=== PATIENT | female | born 1950 | race Caucasian/White ===

== ENCOUNTER 2019-03-02 11:43 | Emergency (ER) | payer MEDICARE, OTHER ==
[~2019-03-02] VITALS: Ht 160 cm; Wt 92.1 kg
--- NOTE | 2019-03-02 12:01 | NUR ---
PT TO ROOM AND IN GOWN. PT SET UP ON ALL MONITORS.
--- NOTE | 2019-03-02 12:01 | NUR ---
68 Y/O FEMALE PRESENTS TO ED WITH C/O CP. PER PT "SINCE LAST NIGHT I GOT SOME CHEST PAIN. IT FEELS LIKE IT'S A SQUEEZING A MUSCLE. IT'S OFF AND ON. I DIDN'T TAKE ANY MEDS FOR IT. I WAS SWEATING THIS MORNING, BUT IT'S GONE AWAY. " NO C/O N/V/D, TRAUMA, SYNCOPE.
[2019-03-02] MEDS ORDERED: SODIUM CHLORIDE FLUSH 10ML SYR IVF ONE (12:30)
[2019-03-02 12:42] LABS: BASOPHILS # (AUTO) 0.03 x10^3/uL (0-0.1); BASOPHILS % (AUTO) 0 % (0-1); EOSINOPHILS # (AUTO) 0.28 x10^3/uL (0-0.4); EOSINOPHILS % (AUTO) 4 % (1-7); LYMPHOCYTES # (AUTO) 1.61 x10^3/uL (1-3.4); LYMPHOCYTES % (AUTO) 25 % (22-44); MD NO; MEAN CORPUSCULAR HGB CONC 33.8 g/dL (32.4-35.8); MEAN CORPUSCULAR VOLUME 88.6 fL (80-100); MEAN PLATELET VOLUME 8.3 fL (7.4-10.4); MONOCYTES # (AUTO) 0.83 x10^3/uL (0.2-0.8); MONOCYTES % (AUTO) 13 % (2-9); NEUTROPHILS # (AUTO) 3.82 x10^3/uL (1.8-6.8); NEUTROPHILS % (AUTO) 58 % (42-75); PLATELET COUNT 288 x10^3/uL (130-400); RED BLOOD COUNT 4.67 x10^6/uL (3.82-5.3); RED CELL DISTRIBUTION WIDTH 15.1 % (9.6-15.2)
[2019-03-02 12:52] LABS: INTERNATIONAL NORMALIZED RATIO 0.95 (0.93-1.1)
[2019-03-02 12:54] LABS: ALANINE AMINOTRANSFERASE 31 U/L (12-78); ALBUMIN 3.6 g/dL (3.4-5.0); ANION GAP 9 mmol/L (5-15); CALCIUM 8.6 mg/dL (8.5-10.1); CHLORIDE 108 mmol/L (98-107)
[2019-03-02 12:59] LABS: ALKALINE PHOSPHATASE 86 U/L (45-117); BILIRUBIN,TOTAL 0.4 mg/dL (0.2-1.0); CREATININE 0.73 mg/dL (0.55-1.02); TOTAL PROTEIN 7.4 g/dL (6.4-8.2); TROPONIN I < 0.015 ng/mL (0.000-0.045)
--- NOTE | 2019-03-02 13:34 | NUR ---
late entry for 1250: bedside report to shanta larson rn.
--- NOTE | 2019-03-02 13:35 | NUR ---
late entry for 1223: RECEIVED BEDSIDE REPORT FROM LINDA CRUZ RN.
[2019-03-02 13:37] VITALS: BP 113/71
== END 2019-03-02 14:02 | disposition home or self-care (01) ==
LOC: ED 13:40
DX: R07.89 Other chest pain (principal); M94.0 Chondrocostal junction syndrome [Tietze]; I25.2 Old myocardial infarction
CPT/HCPCS: 36415; 71045; 80053; 84484; 85025; 85610; 93005; 99284

== ENCOUNTER 2021-01-30 09:27 | Inpatient (IN) | payer OTHER ==
[~2021-01-30] VITALS: Ht 160 cm; Wt 93.8 kg
[2021-01-30] MEDS ORDERED: MORPHINE SULFATE 4 MG/ML, 1ML ONE (09:39)
[2021-01-30 09:58] LABS: BASOPHILS % (AUTO) 1 % (0-1); EOSINOPHILS % (AUTO) 2 % (1-7); LYMPHOCYTES % (AUTO) 21 % (22-44); MEAN CORPUSCULAR HEMOGLOBIN 29.8 pg (27.0-34.8); MEAN PLATELET VOLUME 8.3 fL (7.4-10.4); MONOCYTES % (AUTO) 10 % (2-9); NEUTROPHILS % (AUTO) 67 % (42-75); PLATELET COUNT 267 x10^3/uL (130-400); RED BLOOD COUNT 4.51 x10^6/uL (3.82-5.3)
[2021-01-30] MEDS ORDERED: MORPHINE SULFATE 4 MG/ML, 1ML IVPush PRN (10:00)
--- NOTE | 2021-01-30 10:01 | NUR ---
PT BIB EMS FOR CP, SOB, AND NAUSEA THAT STARTED AROUND 0400. PT HX OF GA WITH CARDIAC SURGERY IN 2008 WITH STENTS PLACED. PT STATES PAIN IS 10/10, CRUSHING AND RADIATES TO HER BACK. PT TOOK 1 [employer] EMS ARRIVAL. PIV BY EMS [employer]PER[employer] CONSULTANT RAC 20 GA. EMS GAVE PT 324 ASPIRIN, 4 MG ZOFRAN, 150 ML NS AND 10.4 MG NTG. PER EMS PT 12 LEAD PRIOR TO NTG WAS OK, BUT AFTER NTG SHOWED 1MM ST ELEVATON IN INFERIOR LEADS. PT ALSO HAD A SIGNIFICANT DECREASE IN BP TO 90/60 SO EMS INITIATED NS BOLUS OF 150 ML.
--- NOTE | 2021-01-30 10:05 | NUR ---
PT FRIEND BEDSIDE AT THIS TIME
[2021-01-30 10:10] LABS: INTERNATIONAL NORMALIZED RATIO 0.98 (0.93-1.1); PROTHROMBIN TIME 10.5 Seconds (9.6-11.5)
[2021-01-30 10:21] LABS: ALBUMIN 3.4 g/dL (3.4-5.0); ANION GAP 7 mmol/L (5-15); CHLORIDE 110 mmol/L (98-107)
[2021-01-30 10:37] LABS: TROPONIN I < 0.015 ng/mL (0.000-0.045)
[2021-01-30] MEDS ORDERED: HEPARIN 25,000 UNITS/250ML PMX 250 ML IV PRN (12:00)
[2021-01-30] MEDS ORDERED: HEPARIN 5,000 UNITS/ML, 1ML IV ONE (12:00)
[2021-01-30] MEDS ORDERED: HEPARIN 5,000 UNITS/ML, 1ML IV PRN (12:00)
--- NOTE | 2021-01-30 12:08 | NUR ---
CONFIRMED HEPARIN DOSE WITH PHARMACY
[2021-01-30] MEDS ORDERED: HEPARIN 25,000 UNITS/250ML PMX 250 ML ONE (12:10)
[2021-01-30] MEDS ORDERED: HEPARIN 5,000 UNITS/ML, 1ML ONE (12:10)
[2021-01-30] MEDS ORDERED: LISINOPRIL 5 MG TABLET PO ONE (12:30)
[2021-01-30 12:46] LABS: TROPONIN I < 0.015 ng/mL (0.000-0.045)
[2021-01-30] MEDS ORDERED: SODIUM CHLORIDE FLUSH 10ML SYR IVF PRN (13:30)
--- NOTE | 2021-01-30 13:32 | NUR ---
PT OFF THE FLOOR TO [facility]
[2021-01-30] MEDS ORDERED: FENTANYL PF 100 MCG/2ML ONE (13:36)
[2021-01-30] MEDS ORDERED: TICAGRELOR 90 MG TABLET ONE (13:36)
[2021-01-30] MEDS ORDERED: MIDAZOLAM 1 MG/ML, 5ML ONE (13:36)
[2021-01-30] MEDS ORDERED: VERAPAMIL 2.5 MG/ML, 2ML ONE (13:36)
[2021-01-30] MEDS ORDERED: BIVALIRUDIN 250 MG ONE (13:37)
[2021-01-30] MEDS ORDERED: HEPARIN 1,000 UNITS/ML, 10ML ONE (13:37)
[2021-01-30] MEDS ORDERED: LIDOCAINE-MPF 1%, 5ML ONE (13:37)
[2021-01-30] MEDS ORDERED: LIDOCAINE 1%, 20ML ONE (13:38)
[2021-01-30 14:46] VITALS: BP 132/68
[2021-01-30 20:41] VITALS: BP 92/60
[2021-01-30] MEDS ORDERED: METOPROLOL SUCCINATE 25 MG TAB.ER.24H PO SCH (21:00)
[2021-01-30] MEDS: ATORVASTATIN 80 MG TABLET PO SCH (21:04)
[2021-01-31 00:17] VITALS: BP 88/54
[2021-01-31] MEDS: ASPIRIN 81 MG TABLET EC PO SCH (05:47)
[2021-01-31 06:56] VITALS: BP 96/60
[2021-01-31] MEDS ORDERED: ONDANSETRON 2MG/ML, 2ML IVPush PRN (08:30)
[2021-01-31] MEDS: CLOPIDOGREL 75 MG TABLET PO SCH (11:14)
[2021-01-31 12:22] VITALS: BP 102/64
[2021-01-31 20:00] VITALS: BP 109/69
[2021-01-31] MEDS: ATORVASTATIN 80 MG TABLET PO SCH (20:58)
[2021-02-01 01:11] VITALS: BP 112/68
[2021-02-01] MEDS: ASPIRIN 81 MG TABLET EC PO SCH (05:37)
[2021-02-01 06:29] VITALS: BP 115/57
[2021-02-01] MEDS: CLOPIDOGREL 75 MG TABLET PO SCH (09:00)
[2021-02-01] MEDS ORDERED: ATOR-2 PO (12:16)
[2021-02-01] MEDS ORDERED: ASPI81TA45 PO (12:16)
[2021-02-01] MEDS ORDERED: CLOP75TA PO (12:16)
[2021-02-01 12:23] VITALS: BP 118/66
== END 2021-02-01 14:02 | disposition home or self-care (01) | DRG 287 ==
LOC: ED 10:54 → 5SO 14:50 → INTOOBSV 14:50 → OBSVTOIN 01-31 13:24
PROVIDERS: ADMIT Internal Medicine Cardiovascular Disease; ATTEND Internal Medicine Cardiovascular Disease
PROC: 4A023N7 Measurement of Cardiac Sampling and Pressure, Left Heart, Percutaneous Approach (ICD-10-PCS; principal; 2021-01-30)
PROC: B2111ZZ Fluoroscopy of Multiple Coronary Arteries using Low Osmolar Contrast (ICD-10-PCS; 2021-01-30)
PROC: B2131ZZ Fluoroscopy of Multiple Coronary Artery Bypass Grafts using Low Osmolar Contrast (ICD-10-PCS; 2021-01-30)
PROC: B2151ZZ Fluoroscopy of Left Heart using Low Osmolar Contrast (ICD-10-PCS; 2021-01-30)
PROC: B2181ZZ Fluoroscopy of Left Internal Mammary Bypass Graft using Low Osmolar Contrast (ICD-10-PCS; 2021-01-30)
PROC: B51V1ZZ Fluoroscopy of Other Veins using Low Osmolar Contrast (ICD-10-PCS; 2021-01-30)
DX: I25.700 Atherosclerosis of coronary artery bypass graft(s), unspecified, with unstable angina pectoris (principal); I24.9 Acute ischemic heart disease, unspecified; I25.82 Chronic total occlusion of coronary artery; E66.01 Morbid (severe) obesity due to excess calories; E78.5 Hyperlipidemia, unspecified; I10 Essential (primary) hypertension; Z79.82 Long term (current) use of aspirin; Z83.3 Family history of diabetes mellitus; Z87.891 Personal history of nicotine dependence; Z91.19 Patient's noncompliance with other medical treatment and regimen; I25.2 Old myocardial infarction; Z79.899 Other long term (current) drug therapy; Z79.891 Long term (current) use of opiate analgesic; Z79.01 Long term (current) use of anticoagulants
CPT/HCPCS: 36415; 93459; J3490; 71045; 80048; 82040; 84484; 85025; 85520; 85610; 85730; 93005; 93306; 99156; 99157; C1760; C1769; C1894; G0378; J0583; J1644; J2250; J2405; J3010; J2270; Q9967